=== PATIENT | female | born 1980 | race Caucasian/White ===

== ENCOUNTER → 2017-05-21 | Day surgery (SDC) | payer OTHER ==
[~2017-05-21] MED LIST: ADIPEX-P37.5 MG PO; CEFTRIAXONE SOD 1 GM VIAL ONE; DEXAMETHASONE SOD PHOS INJ 4 MG/ML VIAL ONE; FENTANYL CITRATE/PF 100MCG/2 ML INJ ONE; IOPAMIDOL 610MG/1ML 300 MG/ML VIAL IV ONE; LIDOCAINE HCL 2% LOCAL INJ 5 ML SDV VIAL INJ ONE; MIDAZOLAM HCL 2 MG/2 ML VIAL ONE; ONDANSETRON HCL INJ 2 MG/ML VIAL ONE; PROPOFOL IV EMULSION 10 MG/ML 20 ML VIAL ONE; SEVOFLURANE INHAL SOLN 250 ML PEN BTL ONE
--- NOTE | 2017-05-30 10:06 | Operative Report ---
DATE OF PROCEDURE: May 21, 2017 PREOPERATIVE DIAGNOSIS: Left kidney stone. POSTOPERATIVE DIAGNOSES 1. Left upper pole kidney stone. 2. Left proximal ureteral stricture. OPERATIVE PROCEDURES PERFORMED 1. Cystoscopy. 2. Left retrograde pyelogram. 3. Left ureteroscopy. 4. Placement of left ureteral stent. ANESTHESIA: General. ESTIMATED BLOOD LOSS: Minimal. INDICATIONS: Ms. Bertha Stevens is a 36-year-old woman with recent intermittent left flank pain and nausea, who was found to have on successive CT scans an enlarging stone in the upper pole of her left kidney. She now presents for potential management of this problem. PROCEDURE IN DETAIL: The patient was brought to the operating room and placed in the supine position. After initiation of general anesthesia, was placed in the dorsal lithotomy position, and prepped and draped in the usual sterile fashion. Cystourethroscopy was performed using a 21-Emirati cystoscope. The anterior and posterior urethra were noted to be normal. The bladder was entered without difficulty. Upon entrance into the bladder, the ureteral orifices were in their normal anatomical position and produced clear efflux. There was no bladder mucosal lesions identified. Using an 8-Emirati cone-tipped catheter, a left retrograde pyelogram was performed. This revealed narrowing of the left proximal ureter just distal to the ureteropelvic junction. The remainder of the ureter appeared normal with peristalsis. There was no filling defects or calcifications noted. A delayed view showed stasis of the contrast in the renal pelvis presumably due to this ureteral stricture. A 0.035 guidewire was placed across this up into the renal pelvis, and a 12/14 ureteral access sheath was placed. Ureteroscopy was performed. The ureter just distal to this strictured area was noted to be pale with minimal peristalsis. The area of the stricture was noted to be largely impassible with the flexible scope. Therefore, smaller than 6-Emirati. Multiple attempts were made to dilate this area with dilators, and these were unsuccessful. The procedure was then ultimately aborted. Decision was made to place a stent. A 7-Emirati double pigtail stent was then placed. One coil was in the renal pelvis and the subsequent coil was in the bladder. The string was allowed to exit the ureteral meatus. KUB revealed this to be in good anatomical position. The bladder was then drained in its entirety. The cystoscope and the sheath were removed. The patient was returned to a supine position, and anesthesia was reversed. She was transferred to her bed and taken to the postanesthesia care unit in good condition. Of note, the needle and instrument count were correct at the conclusion of the case. Job#: [id number] RI
== END | disposition home or self-care (01) ==
LOC: OR 05:54
PROVIDERS: ATTEND Urology
DX: N20.0 Calculus of kidney (principal); N13.5 Crossing vessel and stricture of ureter without hydronephrosis; Z87.440 Personal history of urinary (tract) infections
CPT/HCPCS: 52332; 52344; 74420; 81025; C1758; C1766; C2617; J0696; J1100; J2001; J2250; J2405; Q9967

== ENCOUNTER 2017-06-01 14:55 | Inpatient (IN) | payer MEDICARE, OTHER ==
[~2017-06-01] VITALS: Ht 157.5 cm; Wt 67.2 kg
[~2017-06-01 14:55] MED LIST changes: -CEFTRIAXONE SOD 1 GM VIAL ONE; -DEXAMETHASONE SOD PHOS INJ 4 MG/ML VIAL ONE; -FENTANYL CITRATE/PF 100MCG/2 ML INJ ONE; -IOPAMIDOL 610MG/1ML 300 MG/ML VIAL IV ONE; -LIDOCAINE HCL 2% LOCAL INJ 5 ML SDV VIAL INJ ONE; -MIDAZOLAM HCL 2 MG/2 ML VIAL ONE; -ONDANSETRON HCL INJ 2 MG/ML VIAL ONE; -PROPOFOL IV EMULSION 10 MG/ML 20 ML VIAL ONE; -SEVOFLURANE INHAL SOLN 250 ML PEN BTL ONE
[2017-06-01] MEDS ORDERED: FENTANYL CITRATE/PF 100MCG/2 ML INJ ONE (14:58)
--- OUTSIDE RECORDS SUMMARY | 2017-06-01 15:00 | XMS REPORT ---
Author [facility] Address Unknown Phone Unavailable Care Team Providers Care Teaching Supervisor Name Role Phone Unavailable Unavailable Problems This patient has no known problems. Allergies, Adverse Reactions, Alerts This patient has no known allergies or adverse reactions. Medications This patient has no known medications. Results Test Description Test Time Test Comments Text Results Atomic Results Result Comments CT ABDOMEN/PELVIS WITH 2017-05-31 17:08:[address] [id number] IMAGING REPORTPatient Name : RUPESH LUCERO RDate of Service: [id number]: 36 Sex: F Order #: [id number] [facility] 5NDOB: 1980 X-Ray Number: [id number] Record Number: [id number] Hospital Number: [id number] Physician: CAYLA DAILEYOrdering Physician: MIHIR DAILEY abdomen and pelvis.History: Bowel obstruction.Technique: IV contrast enhanced CT axial images of the abdomen and pelviswith sagittal and coronal reformatted images were reviewed.This CT exam was performed using one or more of the following dosereduction techniques: Automated exposure control, adjustment of the MAand/or KV according to patient size or use of iterative reconstructiontechnique.Comparison: None.Findings: Images of the lower lungs and mediastinum demonstrate no specific defects.Bilateral breast implants are noted. There is a very small left pleuraleffusion with basilar subsegmental atelectatic changes seen.There several complex cystic changes involving the left kidney. One ofthese involves the superior pole and contains a dystrophic appearingcalcification, the lesion measures 2.6 cm. The left kidney appearshydronephrotic.There is a complex cystic lesion involving the inferior margin of the leftkidney as well this structure measures 13 cm craniocaudal and appearsextrinsic to the left kidney and appears to be related to the left ureter,possibly resulting in obstruction. The cystic changes advanced along theleft side of the retroperitoneum into the pelvis. Ureteral injury orrupture is suspected.The other solid large organs of the upper abdomen appear focally normal.The gallbladder appears normal.There is no significant retroperitoneal adenopathy or fluid collectionsdepicted.Small bowel loops appear normal.Large bowel loops demonstrate only scattered fecal debris.The appendix is retrocecal and appears normal.The urinary bladder appears normal. There is no pelvic free fluid seen. Theuterus appears normal. There is a cyst involving the right adnexa measuring4.5 cm.Impression:Complex cystic collection inferior to the left kidney possibly associatedwith the left ureter and extending caudally through the retroperitoneum.The patient has history of recent stent utilization, the left ureter may beinjured or ruptured. There is left-sided tract obstruction.Complex cystic lesion involving the superior pole of the right kidney.Electronically Signed By: Kip Mendez M.D., 05/31/2017 5:06 [place] authenticated by MINNIE Thompson 2017-05-31 17: 06:00
[2017-06-01 15:24] VITALS: BP 119/74
[2017-06-01] MEDS ORDERED: ONDANSETRON HCL INJ 2 MG/ML VIAL IV PRN (16:00)
[2017-06-01] MEDS ORDERED: HYDROMORPHONE 0.2MG/ML-SOD CHL 30ML PCA SYRINGE IV PRN ×2 (16:00→21:45)
[2017-06-01] MEDS ORDERED: NALOXONE HCL INJ 0.4 MG/ML AMP IV PRN (16:00)
[2017-06-01 16:02] VITALS: BP 119/74
[2017-06-01] MEDS: DEXTROSE 5%/LACTATED RINGERS 1,000 ML IV SCH (16:29)
[2017-06-01] MEDS: CEFTRIAXONE SOD 1 GM VIAL IV SCH (16:29)
[2017-06-01] MEDS: AMPICILLIN SOD 1 GM/NS 50ML 50 ML IV SCH (17:17)
[2017-06-01 20:35] VITALS: BP 110/57
[2017-06-01 23:10] VITALS: BP 110/57
[2017-06-02] VITALS (8 sets, daily range): BP systolic 100–117; BP diastolic 51–67
[2017-06-02] MEDS: DEXTROSE 5%/LACTATED RINGERS 1,000 ML IV SCH ×4 (00:14→23:53)
[2017-06-02] MEDS: AMPICILLIN SOD 1 GM/NS 50ML 50 ML IV SCH ×5 (00:15→23:53)
[2017-06-02] MEDS ORDERED: IOPAMIDOL 610MG/1ML 300 MG/ML VIAL IV ONE (07:57)
--- NOTE | 2017-06-02 10:14 | Operative Report ---
DATE OF PROCEDURE: June 01, 2017 PREOPERATIVE DIAGNOSIS: Left urinoma. POSTOPERATIVE DIAGNOSIS: Left urinoma due to left ureteral leakage. OPERATIVE PROCEDURES PERFORMED 1. Cystoscopy. 2. Left retrograde pyelogram. 3. Placement of left ureteral stent. ANESTHESIA: General anesthesia. ESTIMATED BLOOD LOSS: Minimal. INDICATIONS: Ms. Bertha Stevens is a 36-year-old woman now 2 weeks status post left proximal ureteral dilation. She had a stent placed for approximately 5 days but was unable to tolerate the stent longer, and the stent was removed in the office. She went to a local emergency room in [place] because of increasing abdominal pain, nausea and vomiting. She was found at that time to have retroperitoneal fluid around the kidney suspicious for a urinoma. She now presents for management of this problem. PROCEDURE IN DETAIL: The patient was brought into the operating room and placed in the supine position. After administration of general anesthesia, she was placed in the dorsal lithotomy position and prepped and draped in the usual sterile fashion. Cystourethroscopy was performed using a 21-Luxembourger cystoscope. The anterior and posterior urethra were noted to be normal. The bladder was entered without difficulty. Upon entrance into the bladder, the ureteral orifices were in normal anatomical position. There was normal efflux seen bilaterally. There were no mucosal lesions identified. Using a 5-Luxembourger open catheter, a left retrograde pyelogram was performed. This revealed extravasation at the point of a stricture in the proximal ureter. The retrograde was then halted, and a 0.035 wire was placed under fluoroscopic guidance past the stricture and into the left renal pelvis. This was confirmed by placement of dye in the renal pelvis. Once localization of the wire was confirmed, a 6-Luxembourger double-pigtail stent was placed such that 1 coil was in the renal pelvis and the 2nd coil was in the bladder. The string was cut short but at the urethral meatus. The bladder was then drained in its entirety. The cystoscope and sheath were removed. The patient was returned to the supine position, and anesthesia was reversed. She was transferred to her bed and taken to the postanesthesia care unit in good condition. Of note, the needle and instrument counts were correct at the conclusion of the case. Job#: [id number]
[2017-06-02] MEDS: BISACODYL 5 MG TAB EC PO SCH ×2 (13:39→21:20)
[2017-06-02] MEDS ORDERED: ONDANSETRON HCL INJ 2 MG/ML VIAL ONE (14:54)
[2017-06-02] MEDS ORDERED: PROPOFOL IV EMULSION 10 MG/ML 20 ML VIAL ONE (14:54)
[2017-06-02] MEDS ORDERED: LIDOCAINE HCL 2% JELLY 5 ML TUBE ONE (14:54)
[2017-06-02] MEDS ORDERED: DEXAMETHASONE SOD PHOS INJ 4 MG/ML VIAL ONE (14:54)
[2017-06-02] MEDS ORDERED: LIDOCAINE HCL 2% LOCAL INJ 5 ML SDV VIAL INJ ONE (14:54)
[2017-06-02] MEDS ORDERED: SEVOFLURANE INHAL SOLN 250 ML PEN BTL ONE (14:54)
[2017-06-02] MEDS: CEFTRIAXONE SOD 1 GM VIAL IV SCH (15:33)
[2017-06-02] MEDS: HYDROMORPHONE 1MG/1ML INJ IV PRN ×3 (17:02→23:56)
[2017-06-03] VITALS (8 sets, daily range): BP systolic 97–122; BP diastolic 54–78
[2017-06-03] MEDS: AMPICILLIN SOD 1 GM/NS 50ML 50 ML IV SCH ×4 (05:39→21:29)
[2017-06-03] MEDS: BISACODYL 5 MG TAB EC PO SCH ×3 (05:39→21:22)
[2017-06-03] MEDS: HYDROMORPHONE 1MG/1ML INJ IV PRN (05:40)
[2017-06-03 07:12] LABS: BASOPHILS % 0.2 % (0.0-1.0); HEMATOCRIT 30.3 % (34.2-44.1); HEMOGLOBIN 10.2 g/dL (12.0-16.0); LYMPHOCYTES # (AUTO) 1.1 (1.0-3.2); LYMPHOCYTES % 5.4 % (18.0-39.1); MEAN CORPUSCULAR HEMOGLOBIN 29.6 pg (28-32); MEAN CORPUSCULAR HGB CONC 33.7 g/dL (31-35); MEAN CORPUSCULAR VOLUME 87.8 fL (81-99); MONOCYTES # (AUTO) 1.2 (0.2-0.8); MONOCYTES % 5.9 % (4.4-11.3); NEUTROPHILS # (AUTO) 16.7 (2.1-6.9); NEUTROPHILS % 85.1 % (38.7-80.0); PLATELET COUNT 345 x10e3/uL (140-360); RED BLOOD COUNT 3.45 x10e6/uL (3.6-5.1)
[2017-06-03 07:30] LABS: ANION GAP 11.1 mmol/L (8-16); BLOOD UREA NITROGEN 14 mg/dL (7-26); BUN/CREATININE RATIO 19 (6-25); CALCIUM 8.5 mg/dL (8.4-10.2); CARBON DIOXIDE 25 mmol/L (22-29); CHLORIDE 107 mmol/L (98-107); CREATININE, SERUM 0.74 mg/dL (0.57-1.11); EST GLOMERULAR FILTRATION RATE > 60 ML/MIN (60-); GLUCOSE 156 mg/dL (74-118); POTASSIUM 4.1 mmol/L (3.5-5.1); SODIUM 139 mmol/L (136-145)
[2017-06-03] MEDS: DEXTROSE 5%/LACTATED RINGERS 1,000 ML IV SCH ×2 (08:00→21:29)
[2017-06-03] MEDS ORDERED: SODIUM CHLORIDE FLUSH 10 ML SYR INJ PRN (08:15)
[2017-06-03] MEDS ORDERED: FUROSEMIDE INJ 10 MG/ML 2 ML VIAL IV ONE (08:30)
[2017-06-03 10:21] LABS: LYMPHOCYTES % (MANUAL) 5 % (19-48); MONOCYTES % (MANUAL) 4 % (3.4-9.0); NEUTROPHILS % (MANUAL) 89 % (40-74)
[2017-06-03 10:22] LABS: HYPOCHROMASIA SLIGHT; RBC MORPHOLOGY COMMENT NORMAL
[2017-06-03 10:26] LABS: ANISOCYTOSIS SLIGHT; PLATELET ESTIMATE ADEQUATE
[2017-06-03 10:27] LABS: PLATELET MORPHOLOGY COMMENT NORMAL
[2017-06-03] MEDS: VALACYCLOVIR HCL 500 MG TAB PO SCH (12:42)
--- NOTE | 2017-06-03 12:45 | Diagnostic Imaging Report ---
PROCEDURE:X-RAY ABDOMEN - KUB COMPARISON:Retrograde flow. INDICATIONS:OBSTRUCTION, CONSTIPATION FINDINGS: There is enteric contrast throughout the colon. Bowel gas pattern is normal. No dilated bowel loops. No significant stool burden. Left ureteral stent is present without calcification along its course. No calcifications over the expected portions of the renal shadows. No organomegaly or free air. Osseous structures are unremarkable. CONCLUSION: No bowel obstruction or bowel dilatation. No radiographic findings of constipation. Ureteral stent as described above. Dictated by: Jace Navas M.D. on 06/03/2017 at 12:45 Electronically approved by: Jace Navas M.D. on 06/03/2017 at 12:45
[2017-06-03] MEDS ORDERED: SOD PHOSPHATE/SOD BIPHOSPHATE ENEMA 132 ML BTL PR ONE ×2 (15:00→19:30)
[2017-06-03] MEDS ORDERED: CITRATE OF MAGNESIA 300ML BOTTLE PO ONE (15:00)
[2017-06-03] MEDS: CEFTRIAXONE SOD 1 GM VIAL IV SCH (15:40)
[2017-06-04] VITALS: BP 102/58
[2017-06-04] MEDS: AMPICILLIN SOD 1 GM/NS 50ML 50 ML IV SCH ×3 (00:11→12:00)
[2017-06-04 04:00] VITALS: BP 125/72
[2017-06-04] MEDS: BISACODYL 5 MG TAB EC PO SCH (06:00)
[2017-06-04 07:06] LABS: BASOPHILS # (AUTO) 0.1 (0.0-0.1); BASOPHILS % 0.6 % (0.0-1.0); EOSINOPHILS # (AUTO) 0.1 (0.0-0.4); EOSINOPHILS % 1.2 % (0.0-6.0); HEMATOCRIT 31.7 % (34.2-44.1); HEMOGLOBIN 10.6 g/dL (12.0-16.0); LYMPHOCYTES # (AUTO) 2.8 (1.0-3.2); LYMPHOCYTES % 26.3 % (18.0-39.1); MEAN CORPUSCULAR HEMOGLOBIN 29.1 pg (28-32); MEAN CORPUSCULAR HGB CONC 33.4 g/dL (31-35); MEAN CORPUSCULAR VOLUME 87.1 fL (81-99); MONOCYTES # (AUTO) 0.8 (0.2-0.8); MONOCYTES % 7.5 % (4.4-11.3); NEUTROPHILS # (AUTO) 6.4 (2.1-6.9); NEUTROPHILS % 60.2 % (38.7-80.0); PLATELET COUNT 350 x10e3/uL (140-360); RED BLOOD COUNT 3.64 x10e6/uL (3.6-5.1); RED CELL DISTRIBUTION WIDTH 12.1 % (11.7-14.4)
[2017-06-04 08:31] VITALS: BP 135/74
[2017-06-04 08:45] LABS: BAND NEUTROPHILS % (MANUAL) 2 %; EOSINOPHILS % (MANUAL) 1 % (0-7); LYMPHOCYTES % (MANUAL) 21 % (19-48); METAMYELOCYTES % (MANUAL) 1 % (0-0); MONOCYTES % (MANUAL) 6 % (3.4-9.0); MYELOCYTES % (MANUAL) 1 % (0-0); NEUTROPHILS % (MANUAL) 68 % (40-74)
[2017-06-04 08:46] LABS: PLATELET ESTIMATE ADEQUATE; PLATELET MORPHOLOGY COMMENT NORMAL
[2017-06-04 08:47] LABS: HYPOCHROMASIA SLIGHT; RBC MORPHOLOGY COMMENT NORMAL
[2017-06-04] MEDS: VALACYCLOVIR HCL 500 MG TAB PO SCH (09:00)
[2017-06-04 12:43] VITALS: BP 113/78
== END 2017-06-04 13:55 | disposition home or self-care (01) | DRG 700 ==
LOC: MED/SURG 14:55
PROVIDERS: ADMIT Urology; ATTEND Urology
PROC: 0T778DZ Dilation of Left Ureter with Intraluminal Device, Via Natural or Artificial Opening Endoscopic (ICD-10-PCS; principal; 2017-06-01)
DX: N36.8 Other specified disorders of urethra (principal)
CPT/HCPCS: 36415; 74018; 74420; 80048; 81025; 85025; C1874; J0290; J0696; J1100; J1170; J1940; J2001; J2405; J7120